=== PATIENT | male | born 2000 | race Caucasian/White ===

== ENCOUNTER 2022-02-05 20:56 | Emergency (ER) | payer MEDICAID ==
[~2022-02-05] VITALS: Ht 185.4 cm; Wt 79.2 kg
[~2022-02-05 20:56] MED LIST: DEXT5SYR PO; GUAI600T45 PO
[2022-02-05 21:53] LABS: UA COLLECTION TYPE VOIDED
[2022-02-05 21:54] LABS: CLARITY,URINE CLEAR (Clear); COLOR,URINE YELLOW (Yellow); GLUCOSE, URINE NEGATIVE (Neg); KETONES,URINE NEGATIVE (Neg); LEUKOCYTE ESTERASE ,URINE NEGATIVE (Neg); NITRITES, URINE NEGATIVE (Neg); OCCULT BLOOD,URINE MODERATE (Neg); PROTEIN,URINE NEGATIVE (Neg)
[2022-02-05 22:08] LABS: BACTERIA,URINE NONE SEEN /HPF (Neg); WBC,URINE 0-4 /HPF (0-4)
[2022-02-05 22:09] LABS: MUCUS STRANDS MODERATE /LPF (Neg); SQUAMOUS EPITHELIAL CELL,UR FEW /LPF (FEW)
[2022-02-05] MEDS ORDERED: acetaminophen 325mg tablet PO ONE (23:35)
[2022-02-05] MEDS ORDERED: ibuprofen tablet 400 MG TABLET PO ONE (23:35)
[2022-02-06 01:12] VITALS: BP 124/63
== END 2022-02-06 01:17 | disposition home or self-care (01) ==
LOC: ER 20:58
DX: I88.0 Nonspecific mesenteric lymphadenitis (principal); N50.819 Testicular pain, unspecified; R31.9 Hematuria, unspecified
CPT/HCPCS: 74176; 81001; 99284

== ENCOUNTER 2024-02-18 00:56 | Emergency (ER) | payer BC, MEDICAID ==
[~2024-02-18] VITALS: Ht 185.4 cm; Wt 84.1 kg
[2024-02-18 01:33] VITALS: BP 133/80; PULSE 78; RESP 18; TEMP 98.5; O2SAT 95
== END 2024-02-18 02:23 | disposition home or self-care (01) ==
LOC: ER 00:57
DX: S61.011A Laceration without foreign body of right thumb without damage to nail, initial encounter (principal); Z79.899 Other long term (current) drug therapy; W45.8XXA Other foreign body or object entering through skin, initial encounter; Y93.89 Activity, other specified; Y92.89 Other specified places as the place of occurrence of the external cause; Y99.8 Other external cause status
CPT/HCPCS: 12001; 99282; A6449

== ENCOUNTER 2025-04-02 11:15 | Emergency (ER) | payer BC, MEDICAID ==
[~2025-04-02] VITALS: Ht 185.4 cm; Wt 104.5 kg
[2025-04-02 11:18] VITALS: TEMP 97.8
[2025-04-02] MEDS: LIDOcaine 1% 30ml preserv. free vial IJ STA (14:10)
[2025-04-02] MEDS ORDERED: DOXY100C43 PO (14:54)
--- NOTE | 2025-04-02 14:55 | Physician Documentation ---
History of Present Illness ~ Chief Complaint: Abscess Stated Complaint: POSS STAPH INFECTION Time Seen by MD: 13:41 HPI Oxygen 4-year-old male who presents to the emergency department with an abscess to his right lower leg that he reports began because it irritation with his work boots. He had a proximally 1 cm mildly fluctuant abscess with surrounding erythema. He has no lymphangitis. EHL is intact plantar flexion and dorsiflexion also intact. Tetanus Within 5 Years: Yes Medication Reconciliation Allergies: Coded Allergies: No Known Allergies (Unverified , 04/02/25) Scheduled Doxycycline Monohydrate (Doxycycline Monohydrate), 100 MG PO BID Guaifenesin (Mucinex), 1 TAB PO Q12H Scheduled PRN Dextromethorphan HBr (Daytime Cough), 20 MG PO QID PRN for cough Past Medical History Past Medical History: *RENAL/* Past Surgical History: noncontributory Alcohol Use: None Drug Use: none Lives In: Home Occupation: employed Review of Systems All Other Systems at this time: Reviewed and Negative Integumentary: Reports: lesions Integumentary Right distal lower extremity Physical Exam Vital Signs: Temperature: 97.8, Source: Temporal, Heart Rate: 48, Respiratory Rate: 16, BP: 128/77, Pulse Oximetry: 97, Weight: 104.550 General Appearance: alert, WD/WN, mild distress Neck: normal inspection Cardiovascular: regular rate, rhythm Respiratory: no respiratory distress Chest: no accessory muscle use Abscess/Mass : Appearance: red, tender, fluctuant Length (cm): 1 Cellulitis: localized Cellulitis Length (cm): 3 Cellulitis Width (cm): 3 Comment Distal anterior tibial abscess Skin: normal color Neurologic: oriented x4 Lymphatic: normal inspection Psychiatric: normal mood/affect Procedures I & D Procedure : Site: Distal anterior tibia Anesthesia: Lidocaine Volume Anesthetic (mls): 1 Blade Size: 11 Prep/Supplies: betadine prep, drapes applied, dressing applied, packing placed Incision: mass incised, pus drained, blood drained Tolerated Procedure Well?: yes, no complications Progress Results/Orders Results/Orders Completed Orders - YASMINE BARNARD PAC Lidocaine 1% 30ml Vial (Xylocaine 1% Via (04/02/25 14:10) Vital Signs 04/02/25 04/02/25 04/02/25 11:18 13:49 15:14 Temp 97.8 Pulse 53 48 58 Resp 18 16 16 B/P (MAP) 145/70 128/77 (94) 127/72 Pulse Ox 97 98 Medical Decision Making Additional Comment 24-year-old male with a distal right lower leg abscess likely began because of irritation from his boots. Abscess requires incision and drainage. Simple incision and drainage without complications performed. 1 in quarter-inch gauze packing placed with 72 hour recommended follow up. Patient will be placed on oral antibiotics for cellulitis without lymphangitis. Safely discharged in the emergency department with all questions and concerns addressed. Departure Disposition: HOME / SELF CARE / HOMELESS Impression: Primary Impression: Abscess Additional Impression: Cellulitis, leg Qualified Codes: L03.115 - Cellulitis of right lower limb Discharge Instructions: Incision and Drainage Additional Instructions: In the emergency department he had incision and drainage of the lower leg abs cess. Please follow up in three days if packing remains in place and begin antibiotic as directed. Return if symptoms worsen. Thank you for visiting emergency department [facility]. Referrals: NO PRIMARY CARE PROVIDER (PCP) Prescriptions Doxycycline Monohydrate (Doxycycline Monohydrate) 100 Mg Capsule 100 MG PO BID for 10 Days, #20 CAP may sub doxycycline hyclate or azithromycin z-pack as prescribed Prov: YASMINE BARNARD PAC 04/02/25 Education Educated: Patient Educated regarding: diagnosis, treatment Signature Scribe Signature: . Attestation: . YASMINE BARNARD PAC Apr 02, 2025 14:55
[2025-04-02 15:14] VITALS: BP 127/72; PULSE 58; RESP 16; O2SAT 98
== END 2025-04-02 15:17 | disposition home or self-care (01) ==
LOC: ER 11:16
DX: L02.415 Cutaneous abscess of right lower limb (principal); L03.115 Cellulitis of right lower limb; Z79.899 Other long term (current) drug therapy
CPT/HCPCS: 10060; 99283; A6266; A6407; A6449